=== PATIENT | female | born 1975 | race African-American/Black ===

== ENCOUNTER → 2017-01-09 | Outpatient (CLI) | payer OTHER ==
[2017-01-09 13:14] LABS: URINE APPEARANCE CLEAR (CLEAR); URINE BILIRUBIN NEG (NEG); URINE COLOR YELLOW; URINE NITRITE NEG (NEG); URINE PH 7.5 (4.5-7.5); URINE SPECIFIC GRAVITY 1.012 (1.000-1.030); UROBILINOGEN NEG (NEG)
[2017-01-09 13:22] LABS: MANUAL MICROSCOPIC REQUIRED? NO; REVIEW REQ? NO
== END | disposition home or self-care (01) ==
LOC: C.LABSPEC 12:35
PROVIDERS: ATTEND Obstetrics & Gynecology
DX: O09.521 Supervision of elderly multigravida, first trimester (principal)

== ENCOUNTER → 2017-01-15 | Outpatient (CLI) | payer OTHER ==
[2017-01-15 17:02] LABS: BASO % 0.3 %; BASO ABS # 0.02 K/uL (0-0.2); COMPLETE YES; EOS % 1.4 %; HEMATOCRIT 39.2 % (37-47); IG% 0.3 %; LYMPH % 26.1 %; LYMPH ABS # 1.99 K/uL (1.2-3.4); MEAN CELL VOLUME 84.3 fL (80-100); MEAN CORPUSCULAR HEMOGLOBIN 29.7 pg (25-34); MEAN CORPUSCULAR HGB CONC 35.2 g/dl (32-36); MEAN PLATELET VOLUME 9.5 fL (7.4-10.4); MONO % 6.4 %; NEUT % 65.5 %; PLATELET COUNT 299 K/uL (130-400); RED BLOOD COUNT 4.65 M/uL (4.2-5.4); WHITE BLOOD COUNT 7.61 K/uL (4.8-10.8)
[2017-01-16 12:02] LABS: MANUAL MICROSCOPIC REQUIRED? NO; REVIEW REQ? NO; URINE APPEARANCE CLEAR (CLEAR); URINE BILIRUBIN NEG (NEG); URINE COLOR YELLOW; URINE NITRITE NEG (NEG); URINE SPECIFIC GRAVITY 1.015 (1.000-1.030); UROBILINOGEN NEG (NEG)
[2017-01-18 00:38] LABS: CHLAMYDIA TRACH RNA*** NOT DETECTED (NOT DETECTED); GC (NEIS GONORRHOEAE)RNA** NOT DETECTED (NOT DETECTED)
== END | disposition home or self-care (01) ==
LOC: C.LAB1850 15:37
PROVIDERS: ATTEND Obstetrics & Gynecology
DX: O09.522 Supervision of elderly multigravida, second trimester (principal)

== ENCOUNTER → 2017-03-04 | Outpatient (CLI) | payer OTHER ==
[2017-03-04 19:18] LABS: GTGD 50 Grams
== END | disposition home or self-care (01) ==
LOC: C.LAB1850 14:55
PROVIDERS: ATTEND Obstetrics & Gynecology
DX: O09.522 Supervision of elderly multigravida, second trimester (principal)

== ENCOUNTER → 2017-05-22 | Outpatient (CLI) | payer OTHER ==
[~2017-05-22] MED LIST: OXYC-57 PO; PRENTAB26 PO
[2017-05-22 10:46] LABS: HEMATOCRIT 37.6 % (37-47); HEMOGLOBIN 12.8 g/dL (12.0-16.0)
== END | disposition home or self-care (01) ==
LOC: C.LAB1850 09:39
PROVIDERS: ATTEND Obstetrics & Gynecology
DX: O09.522 Supervision of elderly multigravida, second trimester (principal); Z3A.00 Weeks of gestation of pregnancy not specified

== ENCOUNTER → 2017-07-17 | Outpatient (CLI) | payer OTHER | END | disposition home or self-care (01) | LOC: C.LABSPEC 13:49 | PROVIDERS: ATTEND Obstetrics & Gynecology | DX: O09.813 Supervision of pregnancy resulting from assisted reproductive technology, third trimester (principal); Z3A.00 Weeks of gestation of pregnancy not specified ==

== ENCOUNTER 2017-08-02 05:35 | Inpatient (IN) | payer OTHER ==
--- NOTE | 2017-08-01 17:59 | HISTORY & PHYSICAL EXAMINATION ---
DATE OF ADMISSION: 08/02/2017 PRINCIPAL DIAGNOSIS: Intrauterine at 39 weeks with prior section. The patient requesting repeat section. PRINCIPAL PROCEDURE: Repeat low transverse section. HISTORY OF PRESENT ILLNESS: The patient is a 42-year-old 5, para 2-0-2-2 -[place] female who presents at 39 weeks for repeat section. Her prior section was done because of a nonreassuring heart rate pattern. She did have a spontaneous vaginal delivery prior to this, but she is requesting repeat section at this time. She did have a tubal ligation done in the past, this is an IVF . She had been following the IVF protocol for growth scans and nonstress test and all have been reassuring and within normal limits. echo also was within normal limits. PAST MEDICAL HISTORY: Noncontributory. PAST SURGICAL HISTORY: Tubal ligation in the past and the section. She has also had umbilical hernia repair. OBSTETRICAL AND GYNECOLOGICAL HISTORY: No history of PID, VD or herpes. Periods have been every 28 days. This is an IVF as she has had a prior tubal ligation done in the past. Pap smears have been within normal limits. She has had 2 miscarriages. She has had in 1997 a vaginal delivery at 39 weeks, 7 pound 7 ounce female without complications, 2004 section for nonreassuring heart rate for delivery of a 7 pound male , no complications following her surgeries. ALLERGIES: She has no known drug allergies. MEDICATIONS: vitamin. FAMILY HISTORY: Noncontributory. SOCIAL HISTORY: She does not smoke or drink. HISTORY: Blood type is O positive, antibody screen is negative. Rubella is immune. RPR nonreactive. Hepatitis is negative. HIV is negative. Chlamydia and GC are negative. Glucolas have been within normal limits. Anatomy scan is also normal. Hemoglobin at 28 weeks was 12.8, hematocrit of 37.6. Glucola was within normal limits. She is positive for group B strep. As noted above, growth scans have been within normal limits as have the amniotic fluid index, nonstress tests also have been reactive. PHYSICAL EXAMINATION: VITAL SIGNS: Blood pressure is 116/78. Vital signs are stable. GENERAL: She is a well-nourished, well-developed black female in no apparent distress. LUNGS: Clear to auscultation. HEART: Regular rate and rhythm. No murmurs or gallops. ABDOMEN: Soft and nontender. There is no hepatosplenomegaly or other masses palpable. Fundal height is 39 cm. She has a well-healed low transverse skin incision. PELVIC: Deferred today. EXTREMITIES: Without cyanosis or calf tenderness. ASSESSMENT: A 42-year-old 5, para 2-0-2-2 at 39 weeks presents for repeat section with prior tubal ligation. Please see the orders for further directions.
[2017-08-02] VITALS (20 sets, daily range): BP systolic 107–115; BP diastolic 69–72; PULSE 58–74; TEMP 34.5–36.8; O2SAT 93–98; Ht 154.9 cm; Wt 80.5 kg
[~2017-08-02] VITALS: Ht 154.9 cm; Wt 80.5 kg
[~2017-08-02 05:35] MED LIST changes: +CITRIC ACID/SODIUM CITRATE 15 ML UDC PO ONE; +LACTATED RINGER'S 1000ML 1,000 ML IV SCH; -OXYC-57 PO; -PRENTAB26 PO
[2017-08-02] MEDS ORDERED: PRENTAB26 PO (05:42)
[2017-08-02 05:55] LABS: BASO % 0.3 %; BASO ABS # 0.02 K/uL (0-0.2); EOS % 0.8 %; EOS ABS # 0.06 K/uL (0-0.5); HEMATOCRIT 38.1 % (37-47); HEMOGLOBIN 13.5 g/dL (12.0-16.0); IG# 0.07 K/uL (0.00-0.02); LYMPH % 22.1 %; LYMPH ABS # 1.65 K/uL (1.2-3.4); MEAN CELL VOLUME 86.8 fL (80-100); MEAN CORPUSCULAR HEMOGLOBIN 30.8 pg (25-34); MEAN PLATELET VOLUME 9.5 fL (7.4-10.4); MONO % 10.4 %; MONO ABS # 0.78 K/uL (0.11-0.59); NEUT % 65.5 %; NEUT ABS # 4.89 K/uL (1.4-6.5); PLATELET COUNT 241 K/uL (130-400); RED CELL DISTRIBUTION WIDTH CV 13.6 % (11.5-14.5); RED CELL DISTRIBUTION WIDTH SD 43.1 fL (36.4-46.3); WHITE BLOOD COUNT 7.47 K/uL (4.8-10.8)
[2017-08-02] MEDS ORDERED: CEFAZOLIN IV 2,000 MG in SYRINGE 0 ML IV SCH (06:00)
[2017-08-02] MEDS ORDERED: CEFAZOLIN IV 2,000 MG in DEXTROSE 5% 50ML 50 ML IV SCH (06:00)
[2017-08-02 06:21] LABS: MEAN CORPUSCULAR HGB CONC 35.4 g/dl (32-36)
[2017-08-02] MEDS ORDERED: OXYTOCIN INJ 10 UNITS/ML VIAL ONE (07:19)
--- NOTE | 2017-08-02 07:19 | History & Physical Bridge Note ---
H&P Re-Evaluation Bridge Note: I have examined the patient, reviewed the History & Physical and in the interval since the performance of the History & Physical I have noted the following changes of clinical significance: No changes noted
[2017-08-02] MEDS ORDERED: FENTANYL CITRATE INJ 50 MCG/1 ML 2 ML VIAL ONE (07:20)
[2017-08-02] MEDS ORDERED: MoRPHine SULFATE PF 1 MG/ML 10 ML AMP/VIAL ONE (07:21)
[2017-08-02] MEDS ORDERED: PHENYLEPHRINE 100MCG/ML 5ML SYR ONE (08:00)
[2017-08-02] MEDS ORDERED: [UNRECOGNIZED DRUG - OTHER] IV SCH (08:47)
[2017-08-02] MEDS ORDERED: OXYTOCIN IV SCH (08:47)
--- NOTE | 2017-08-02 08:56 | [facility] Post Operative Brief Note ---
Immediate Operative Summary Operative Date Aug 02, 2017. Pre-Operative Diagnosis Intrauterine at 39 weeks previous Section. Pt requested Repeat Section. Post-Operative Diagnosis Same Procedure(s) Performed Repeart Section with of live female child at 0808. Surgeon Dr. Adan Wood Heel Finisher Surgeon(s) Blanka Jacome Estimated Blood Loss 600ml Findings See Below multiple seedling fibroids, 2 cm uterine fibroid on right round ligament, Fluids (cc crystalloids) 1000 Specimens Placenta Hold Cord Blood Drains [place] to straight drainage- clear urine at the end of the case Anesthesia Type Spinal Complication(s) none Disposition Accompanied Pt To Recover: yes Disposition: L&D
[2017-08-02] MEDS ORDERED: LANOLIN OINT EXT PRN (09:00)
[2017-08-02] MEDS ORDERED: DC PCA PRN (09:00)
[2017-08-02] MEDS ORDERED: MAGNESIUM HYDROXIDE SUSP 30 ML UDC PO PRN (09:00)
[2017-08-02] MEDS ORDERED: SENNA 8.6 MG TAB PO PRN (09:00)
[2017-08-02] MEDS ORDERED: DIPHTHERIA/TETANUS/PERTUSSIS 0.5 ML SYR/VIAL IM. ONE (09:00)
[2017-08-02] MEDS ORDERED: SODIUM CHLORIDE 0.9% 1000ML 1,000 ML IV PRN (09:02)
[2017-08-02] MEDS ORDERED: NALOXONE HCL INJ 1 MG in SODIUM CHLORIDE 0.9% 1000ML 1,000 ML IV PRN ×4 (09:02)
[2017-08-02] MEDS ORDERED: LACTATED RINGER'S 1000ML 500 ML IV PRN (09:02)
[2017-08-02] MEDS ORDERED: NALOXONE HCL INJ 0.08 MG in SYRINGE 1.8 ML IV PRN (09:02)
[2017-08-02] MEDS ORDERED: PROMETHAZINE HCL INJ 25 MG in SODIUM CHLORIDE 0.9% 50ML 50 ML IV PRN (09:15)
[2017-08-02] MEDS ORDERED: NO NARCOTICS OR SEDATIVES SCH (09:15)
[2017-08-02] MEDS ORDERED: NALBUPHINE HCL INJ 10 MG/ML AMP IV PRN (09:15)
[2017-08-02] MEDS ORDERED: EpHEDrine SULFATE INJ 50 MG/ML AMP IV PRN (09:15)
[2017-08-02] MEDS ORDERED: KETOROLAC TROMETHAMINE 30 MG/ML VIAL IV. PRN (09:15)
[2017-08-02] MEDS ORDERED: NALOXONE HCL 0.4 MG/1 ML VIAL/CARP IV PRN (09:15)
[2017-08-02] MEDS ORDERED: MoRPHine SULFATE PF 1 MG/ML 10 ML AMP/VIAL EPI PRN (09:15)
[2017-08-02] MEDS ORDERED: DiphenhydrAMINE HCL 50 MG/ML VIAL IV PRN (09:15)
[2017-08-02] MEDS ORDERED: DC INTRASPINAL MORPHINE SCH (09:15)
[2017-08-02] MEDS ORDERED: LACTATED RINGER'S 1000ML 1,000 ML IV SCH ×2 (09:30→16:45)
[2017-08-02] MEDS: OXYTOCIN INJ 20 UNITS in LACTATED RINGER'S 1000ML 1,000 ML IV SCH ×2 (09:33→18:30)
--- NOTE | 2017-08-02 09:43 | Anesthesiology Progress Note ---
Anesthesia Post Op Note Date & Time Aug 02, 2017 at 09:42 Notes Mental Status: alert / awake / arousable, participated in evaluation Pt Amnestic to Procedure: No Nausea / Vomiting: adequately controlled Pain: adequately controlled Airway Patency, RR, SpO2: stable & adequate BP & HR: stable & adequate Hydration State: stable & adequate Neuraxial Anesthesia: was administered, sensory block is resolving Anesthetic Complications: no major complications apparent
--- NOTE | 2017-08-02 10:00 | OPERATIVE REPORT ---
DATE OF OPERATION: 08/02/2017 SURGEON: Yamile Adan MD. TECHNICAL SUPPORT AGENT: Gladys Ramos, PGY-1. PREOPERATIVE DIAGNOSES: Intrauterine at 39 weeks with prior section, requesting repeat section. POSTOPERATIVE DIAGNOSIS: Same plus delivery of a viable female infant, 8 pounds 4 ounces. PROCEDURE: Repeat low transverse cervical section. ANESTHESIA: Subarachnoid block. BLOOD LOSS: 600 mL. HISTORY OF PRESENT ILLNESS: The patient is a 42-year-old 5, para 2-0-2-2 -[place]i female who presents for repeat section at 39 weeks. Her prior section was done because of a nonreassuring heart rate pattern. The patient is requesting repeat section at this time. She understands the risks of the procedure and are willing to proceed. GROSS FINDINGS: Uterus is gravid and consistent with a term in size. Bilateral ovaries are grossly normal. There is evidence of a bilateral tubal ligation present. She has a 2 cm pedunculated fibroid attached to her right round ligament close to the uterine fundus, but on the round ligament. There are multiple seedling fibroids also present on the posterior wall of the uterus and the uterus does feel somewhat bulky after the baby was delivered. DESCRIPTION OF THE PROCEDURE: After the patient received adequate subarachnoid block, she was prepped and draped in usual sterile fashion. A low transverse skin incision was made through her prior scar and carried to the fascia with the same scalpel. The fascial incision was then extended with Mittal scissors. The edges were then grasped with Linnette clamps and the underlying rectus muscles bluntly and sharply dissected off of the overlying fascia. The rectus muscles were divided with the scalpel to the level of the perineum. They were then additionally with Metzenbaum scissors. After the bladder was taken down off the anterior surface of the uterus, it was placed behind the bladder blade. Low uterine segment was entered with the scalpel and extended transversely. Membranes were ruptured for thin meconium stained fluid with moderate fundal pressure and vacuum assistance. The head was delivered through the uterine incision gently. The mouth and nasopharynx were suctioned on delivery and the rest of the delivered easily and was handed off to Dr. Ruelas who was attendance nursing service administrator after clamping and cutting the umbilical cord. There was vigorous crying and the infant was moving all 4 limbs. The placenta was manually removed and the uterus exteriorized with some difficulty because of the bulkiness of the uterus. The skin incision was extended bilaterally to assist in delivering the uterine fundus and exteriorizing it. It was covered then with a clean lap sponge. The uterine cavity was explored and some retained membranes were removed. The uterus was then closed in a running locking imbricating fashion with 0 Monocryl in 2 layers. Hemostasis appeared to be satisfactory. There was one area that was reinforced with a [id number] stitch on the right side of the uterine incision. The posterior cul-de-sac was then irrigated with normal saline. The uterine incision was examined once more and continued to have excellent hemostasis. The gutters were explored and there appeared to be no clot or fluid present. The anterior cul-de-sac was then irrigated with normal saline. This was all done after the uterus was placed back inside the uterine cavity. The rectus muscles were brought together on the midline with a running stitch of 0 Monocryl. The fascia was closed in a running fashion with 0 Vicryl after ensuring hemostasis in the adipose layer and freeing up the skin edge because of scar tissue. The skin edges were reapproximated using a subcuticular stitch of 4-0 Vicryl. Urine was clear at the end of the case. Mother and infant were doing well after delivery. I attest to the content of the Intraoperative Record and any orders documented therein. Any exceptions are noted below. DOLLYD
[2017-08-02] MEDS: ONDANSETRON INJ 2 MG/ML 2 ML VIAL IV PRN ×2 (10:27→16:59)
[2017-08-02] MEDS: SIMETHICONE 80 MG CHEW PO SCH ×3 (12:00→23:15)
[2017-08-02] MEDS ORDERED: ACETAMINOPHEN IV 100 ML IV PRN (12:30)
[2017-08-02] MEDS ORDERED: LORAZEPAM INJ 0.5 MG in SYRINGE 0.75 ML IV STA (17:17)
[2017-08-02] MEDS: DOCUSATE SODIUM 100 MG CAP PO SCH (20:00)
[2017-08-03] VITALS: BP 105/69; PULSE 83; TEMP 36.7; O2SAT 97
[2017-08-03 01:00] VITALS: O2SAT 96
[2017-08-03] MEDS ORDERED: OXYCODONE/ACETAMINOPHEN 5-325 TAB PO PRN (03:00)
[2017-08-03] MEDS ORDERED: MEPERIDINE HCL 50 MG/ML CARP IV PRN ×2 (03:00)
[2017-08-03] MEDS ORDERED: PROMETHAZINE HCL INJ 25 MG in SODIUM CHLORIDE 0.9% 50ML 50 ML IV PRN (03:00)
[2017-08-03] MEDS ORDERED: ONDANSETRON INJ 2 MG/ML 2 ML VIAL IV PRN (03:00)
[2017-08-03] MEDS ORDERED: KETOROLAC TROMETHAMINE 30 MG/ML VIAL IV. PRN (03:00)
[2017-08-03] MEDS ORDERED: DiphenhydrAMINE HCL 50 MG/ML VIAL IV PRN (03:00)
[2017-08-03 03:30] VITALS: BP 104/62; PULSE 87; TEMP 37.3; O2SAT 97
--- NOTE | 2017-08-03 07:43 | Progress Note ---
Subjective Aug 03, 2017. Subjective conversation w/ patient, physical exam Ambulation: limited ambulation Voiding: no voiding problems (bearden removed this AM; no urination on her own yet) Passing Gas: Yes Diet Tolerance: Clear Liquids (to be advanced this morning to regular) Lochia: Small Feeding Type: Breast Feeding Pain: pain at 3/10, improved with Rx Comment: pt seen and assessed at bedside this AM; no acute events overnight Review of Systems Constitutional: No fever, No chills Respiratory: No cough, No shortness of breath Cardiac: No chest pain, No edema Breast: No problem reported Abdomen: No pain, No nausea, No vomiting Female : No problem reported no headaches or calf tenderness reported Objective Vital Signs Date Time Temp Pulse Resp B/P (MAP) Pulse Ox O2 Delivery O2 Flow Rate FiO2 08/03/17 03:30 37.3 87 16 104/62 (76) 97 Room Air 08/03/17 01:00 16 96 08/03/17 00:00 97 Room Air 08/03/17 00:00 16 97 08/03/17 00:00 36.7 83 16 105/69 (81) 97 Room Air 08/02/17 23:00 16 97 08/02/17 22:00 20 97 08/02/17 21:00 20 97 08/02/17 20:00 20 98 08/02/17 19:30 96 Room Air 08/02/17 19:30 36.5 74 20 107/69 (82) Room Air 08/02/17 19:30 20 96 08/02/17 19:00 20 96 08/02/17 19:00 16 97 08/02/17 18:55 36.8 08/02/17 18:25 35.4 08/02/17 18:00 16 98 08/02/17 17:55 35.4 08/02/17 17:15 35.5 08/02/17 17:00 18 97 08/02/17 16:45 97 Room Air 08/02/17 16:45 34.5 74 18 115/70 (85) Room Air 08/02/17 16:45 34.5 08/02/17 16:00 18 95 08/02/17 15:00 16 93 08/02/17 14:00 18 97 08/02/17 13:10 34.9 58 16 110/72 (85) 95 Room Air 08/02/17 13:10 16 95 08/02/17 11:50 98 Room Air 08/02/17 11:50 34.8 61 18 108/71 (83) 98 Room Air 08/02/17 11:50 18 98 Physical Exam General Appearance: WELL-APPEARING, WD/WN Respiratory/Chest: chest non-tender, lungs clear Cardiovascular: regular rate, rhythm, no edema Abdomen: normal bowel sounds, non tender, soft Fundus: Firm, Non-Tender, Relation to Umbilicus (1 cm below) Incision Description: Clean, Dry & Intact Extremities: normal range of motion, non-tender, normal inspection, no pedal edema, no calf tenderness Laboratory Results Last 24 Hours Test 08/03/17 06:00 Medications Current Inpatient Medications Medications (Trade) Dose Ordered Sig/Dorothy Route Start Time Stop Time Status Last Admin Dose Admin Lactated Ringer's 1,000 ml @ 1,000 mls/hr Q1H IV 08/02/17 04:58 09/01/17 04:57 08/02/17 06:12 1,000 MLS/HR Oxytocin 20 units/ Lactated Ringer's 1,002 ml @ 125 mls/hr Q8H1M IV 08/02/17 09:30 09/01/17 09:29 08/02/17 18:30 125 MLS/HR Lactated Ringer's 1,000 ml @ 125 mls/hr Q8H IV 08/02/17 09:30 09/01/17 09:29 Ketorolac Tromethamine (Toradol Inj) 30 mg Q6H PRN IV. 08/03/17 03:00 08/08/17 02:59 08/03/17 06:09 30 MG Meperidine HCl (Demerol Inj) 50 mg Q4H PRN IV 08/03/17 03:00 08/17/17 02:59 Meperidine HCl (Demerol Inj) 75 mg Q4H PRN IV 08/03/17 03:00 08/17/17 02:59 Oxycodone/ Acetaminophen (Percocet 5-325mg Tab) 0.5 tab Q4H PRN PO 08/03/17 03:00 08/17/17 02:59 Oxycodone/ Acetaminophen (Percocet 5-325mg Tab) 1 tab Q4H PRN PO 08/03/17 03:00 08/17/17 02:59 Ibuprofen (Motrin Tab) 600 mg Q4H PRN PO 08/02/17 09:00 09/01/17 08:59 Promethazine HCl 25 mg/Sodium Chloride 51 ml @ 204 mls/hr Q4H PRN IV 08/03/17 03:00 09/02/17 02:59 Ondansetron HCl (Zofran Inj) 4 mg Q4H PRN IV 08/03/17 03:00 09/02/17 02:59 Prenat Multivit/ [place]/Iron/Folic Ac ( Vitamin Tab) 1 tab DAILY PO 08/03/17 08:00 09/02/17 07:59 Bisacodyl (Dulcolax Tab) 5 mg HS ONCE PO 08/03/17 22:00 08/03/17 22:01 Bisacodyl (Dulcolax Supp) 10 mg PRN PRN MA 08/04/17 09:00 09/03/17 08:59 Docusate Sodium (coLACE CAP) 100 mg BID PO 08/02/17 20:00 09/01/17 19:59 Magnesium Hydroxide (Milk Of Magnesia Susp) 30 ml HS PRN PO 08/02/17 09:00 09/01/17 08:59 Ferrous Sulfate (Feosol Tab) 325 mg DAILY PO 08/03/17 08:00 09/02/17 07:59 Lanolin (Lanolin Oint) PRN PRN EXT 08/02/17 09:00 09/01/17 08:59 Simethicone (Mylicon Chew Tab) 80 mg QID PO 08/02/17 12:00 09/01/17 12:59 Diphenhydramine HCl (Benadryl Cap) 25 mg QID PRN PO 08/03/17 03:00 09/02/17 02:59 Diphenhydramine HCl (Benadryl Inj) 25 mg QID PRN IV 08/03/17 03:00 09/02/17 02:59 Senna (Senokot Tab) 17.2 mg HS PRN PO 08/02/17 09:00 09/01/17 08:59 Acetaminophen 100 ml @ 400 mls/hr Q8H PRN IV 08/02/17 12:30 09/01/17 12:29 Assessment and Plan Post-Op Day#: 1 Continue Routine Care: Resident Physician Supervision Note: I was present with Dr. Ramos during the history and exam. I discussed the case with the resident and agree with the findings and plan as documented in the note. Any exceptions or clarifications are listed here: [None] Documented By: Yamile Golden 42 yo , POD #1 s/p elective CS Continue routine care Encourage ambulation, breast feeding Pain control with Rx prn Discussed wound care Discharge 1-2 days Resident Tracking Resident Involvement: Resident Care Provided Care Provided: OB Delivery
[2017-08-03] MEDS: DOCUSATE SODIUM 100 MG CAP PO SCH ×2 (07:47→20:11)
[2017-08-03] MEDS: FERROUS SULFATE 325 MG TAB PO SCH (07:47)
[2017-08-03] MEDS: SIMETHICONE 80 MG CHEW PO SCH ×4 (07:47→20:11)
[2017-08-03] MEDS: PRENATAL VITAMIN TAB PO SCH (07:47)
[2017-08-03 08:00] VITALS: BP 108/69; PULSE 76; TEMP 36.9
[2017-08-03] MEDS ORDERED: PRENATAL VITAMIN TAB PO SCH (08:00)
--- NOTE | 2017-08-03 08:05 | Discharge Instructions ---
Discharge Instructions Date of Service Aug 03, 2017. Admission Reason for Admission: History of Delivery Discharge Discharge Diagnosis / Problem: s/p elective CS Discharge Goals Goal(s): Routine recovery after Medications Continue Dispensed Medications: lansinoh Activity Recommendations Activity Limitations: per Instructions/Follow-up section . Instructions / Follow-Up Instructions / Follow-Up ACTIVITY RECOMMENDATIONS: * Gradual return to full activity over the next 2-3 weeks. * No lifting - nothing heavier than baby over the next 2-3 weeks. * Do not engage in vigorous exercise, sexual activity or sports until cleared by your physician. * Do not drive or operate any motorized equipment until cleared by your physician. * You may shower/bathe daily. MEDICATIONS: For discomfort or pain, you may use Acetaminophen (Tylenol), Ibuprofen (Advil), or Naproxen (Aleve) following the package directions. For constipation you may use Colace following the package directions. BREAST CARE: If you are not breast feeding: * Wear a supportive bra 24 hours a day for one to two weeks. * Avoid stimulating your breasts and nipples as much as possible during the first few weeks after delivery. * When taking a shower, have the warm water hit your back, not breasts. * When your breasts feel full, apply ice packs. Usually three to four times a day helps ease the discomfort. * Take a mild pain medication (Tylenol / Motrin) when you are uncomfortable. If breast feeding: * Use breast milk to lubricate nipples. Lansinoh cream may be used for sore nipples. You do not need to remove cream prior to breast feeding. If using a different brand of cream, check the label for directions regarding removal of cream prior to nursing. * Wear a supportive bra. * If having problems with breasts or breast feeding, call a portfolio consultant or your health care provider. SPECIAL CARE INSTRUCTIONS: When you are discharged from the hospital, it is important for you to follow the instructions listed below: * During the first week at home, you should be able to care for yourself and your baby. In addition, the usual light household activities are encouraged. * Limit your activities to the way you feel. Do not try to clean the house or move furniture. Be sensible. * If you actively engage in sports and have done so up until the time of your delivery, you may resume these activities as soon as you feel able. This may take up to one month or even longer. Use good judgment. * Continue to take your vitamins for at least six weeks after the of your baby. * Your diet need not be limited unless you were on a special diet before your delivery. Breast-feeding mothers need around 2500 calories per day and at least 64-80 ounces of fluid per day (8 to 10 glasses). * You should eat foods from the four major food groups. Crash diets or fad diets are to be avoided. Eating lean meats, fresh fruits and vegetables, low-fat dairy products, high fiber foods and a regular exercise program, will help you get back to your pre- weight without putting your health at risk. * Constipation is sometimes a problem after delivery. Take a mild laxative as needed. If breast feeding, Milk of Magnesia is acceptable to use. You may use a suppository or Fleets enema. * A daily shower or tub bath is suggested. Wash incision daily with warm soapy water and pat dry. It doesn't need to be covered unless drainage is present. * A bloody vaginal discharge will usually continue until around four weeks . A small amount of bleeding may continue for as long as six weeks. Vaginal discharge changes from the bright red bleeding after delivery to pink then brownish and finally yellowish-pink before becoming white and disappearing. * Bleeding may increase with activity. Your first period may come in 4-8 weeks. If you are breast feeding, your period may be delayed even longer. * [place] (sex) can begin whenever both you and your partner feel comfortable and do not have any form of genital infection. It is recommended that you wait at least six weeks for internal and external healing to occur. If you have questions, please talk to your health care practitioner. A condom should be used to prevent infection and . * Foreplay, gentle intercourse and lubrication is very important the first several times to prevent pain. A water-based lubricant such as K-Y jelly or Astroglide may be used. * If you have RH negative blood and your baby is RH positive, you will receive RHOGAM by injection prior to discharge. The nurse will give you a card to keep with you that has the date and place that you received RHOGAM after delivery. * During your care, you had a Rubella screen done to check for the presence of rubella antibodies in your blood. If your test was negative, you will receive a Rubella vaccine prior to discharge. This vaccine may cause a fever, soreness at the injection site and flu-like symptoms. If these symptoms persist, notify your health care practitioner. is not advised for one month after a Rubella vaccine. * Verbalizes understanding of car seat law as reviewed with patient nursing. * Car Seat hand-out given and reviewed with patient by nursing. * Shaken baby information reviewed with patient by nursing. Call you doctor if: * Heavy bleeding (saturating several pads an hour) or passing clots the size of your fist. * A fever >101 degrees F (38.3 degrees C) on two occasions four hours apart and /or chills. * Unusual pain in the pelvic or vaginal areas. * Call the doctor for any increased redness, drainage or swelling around the incision and any pain unrelieved by prescribed pain medication. * "Baby Blues" lasting longer than two weeks. If you have any questions or concerns, call your health care practitioner at . FOLLOW UP VISIT: * Please call the office at to schedule a 6 week examination. It is important you keep this appointment. It is important for you to make arrangements for either yearly or twice yearly check-ups thereafter. Current Hospital Diet Patient's current hospital diet: Regular OB Diet Discharge Diet Recommended Diet: Regular OB Diet Procedures Procedures Performed: Repeart Section with of live female child at 0808. Pending Studies Studies pending at discharge: no Medical Emergencies . Who to Call and When: Medical Emergencies: If at any time you feel your situation is an emergency, please call [phone] immediately. . Non-Emergent Contact Non-Emergency issues call your: House Parent . . "Provider Documentation" section prepared by Mirna Ramos. .
[2017-08-03 08:28] LABS: BASO % 0.1 %; BASO ABS # 0.01 K/uL (0-0.2); EOS % 0.3 %; EOS ABS # 0.03 K/uL (0-0.5); HEMATOCRIT 29.8 % (37-47); HEMOGLOBIN 10.2 g/dL (12.0-16.0); IG# 0.04 K/uL (0.00-0.02); LYMPH % 12.8 %; LYMPH ABS # 1.32 K/uL (1.2-3.4); MEAN CELL VOLUME 87.6 fL (80-100); MEAN CORPUSCULAR HGB CONC 34.2 g/dl (32-36); MEAN PLATELET VOLUME 9.3 fL (7.4-10.4); MONO % 5.2 %; MONO ABS # 0.53 K/uL (0.11-0.59); NEUT % 81.2 %; NEUT ABS # 8.36 K/uL (1.4-6.5); PLATELET COUNT 199 K/uL (130-400); RED CELL DISTRIBUTION WIDTH CV 13.6 % (11.5-14.5); RED CELL DISTRIBUTION WIDTH SD 43.9 fL (36.4-46.3); WHITE BLOOD COUNT 10.29 K/uL (4.8-10.8)
[2017-08-03] MEDS: IBUPROFEN 600 MG TAB PO PRN ×3 (11:53→20:42)
[2017-08-03 12:00] VITALS: BP 108/78; PULSE 84; TEMP 36.7
[2017-08-03 15:30] VITALS: BP 108/71; PULSE 83; TEMP 36.8
[2017-08-03] MEDS ORDERED: BISACODYL 5 MG TABEC PO ONE (22:00)
[2017-08-03] MEDS: OXYCODONE/ACETAMINOPHEN 5-325 TAB PO PRN (23:25)
[2017-08-04 00:35] VITALS: BP 117/76; PULSE 78; TEMP 37
[2017-08-04] MEDS: OXYCODONE/ACETAMINOPHEN 5-325 TAB PO PRN ×2 (06:26→11:31)
[2017-08-04 07:48] LABS: HEMOGLOBIN 10.7 g/dL (12.0-16.0)
[2017-08-04] MEDS: DOCUSATE SODIUM 100 MG CAP PO SCH (08:13)
[2017-08-04] MEDS: PRENATAL VITAMIN TAB PO SCH (08:13)
[2017-08-04] MEDS: FERROUS SULFATE 325 MG TAB PO SCH (08:13)
[2017-08-04] MEDS: SIMETHICONE 80 MG CHEW PO SCH (08:14)
[2017-08-04 08:36] VITALS: BP 102/69; PULSE 76; TEMP 36.6
[2017-08-04] MEDS ORDERED: BISACODYL 10 MG SUPP PR PRN (09:00)
[2017-08-04] MEDS ORDERED: OXYC-57 PO (09:51)
--- NOTE | 2017-08-04 09:51 | Progress Note ---
Subjective Aug 04, 2017. Subjective conversation w/ patient, physical exam, lab review Ambulation: ambulating normally Voiding: no voiding problems (bearden removed this AM; no urination on her own yet) Passing Gas: Yes Diet Tolerance: Regular Diet Lochia: Small Feeding Type: Breast Feeding Pain: controlled with oral pain meds Objective Vital Signs Date Time Temp Pulse Resp B/P (MAP) Pulse Ox O2 Delivery O2 Flow Rate FiO2 08/04/17 08:36 36.6 76 20 102/69 (80) Room Air 08/04/17 07:45 Room Air 08/04/17 00:35 Room Air 08/04/17 00:35 37.0 78 16 117/76 (90) Room Air 08/03/17 15:30 36.8 83 20 108/71 (83) Room Air 08/03/17 15:30 Room Air 08/03/17 12:00 36.7 84 20 108/78 (88) Physical Exam General Appearance: WELL-APPEARING, WD/WN, NO APPARENT DISTRESS Abdomen: non tender, soft Fundus: Firm, Tender (appropriate for postop), Relation to Umbilicus (2 above u , lots of skin edema) Incision Description: Clean, Dry & Intact Extremities: non-tender, normal inspection, + pedal edema (trace) Laboratory Results Last 24 Hours Test 08/04/17 07:25 Hemoglobin 10.7 g/dL Hematocrit 31.0 % Assessment and Plan Post-Op Day#: 2 Continue Routine Care: Doing well. Plan d/c. Instructions given. Scripts given.
[2017-08-04] MEDS: IBUPROFEN 600 MG TAB PO PRN (11:42)
[2017-08-04 11:55] VITALS: BP_DIAS 69; PULSE 76; TEMP 36.6
== END 2017-08-04 11:55 | disposition home or self-care (01) | DRG 766 ==
LOC: C.LD 05:35 → C.OBG 11:34 → EDSTATUS 14:49
PROVIDERS: ADMIT Obstetrics & Gynecology; ATTEND Obstetrics & Gynecology
PROC: 10D00Z1 Extraction of Products of Conception, Low, Open Approach (ICD-10-PCS; principal; 2017-08-02 07:30)
DX: O34.219 Maternal care for unspecified type scar from previous cesarean delivery (principal); O09.523 Supervision of elderly multigravida, third trimester; Z37.0 Single live birth; Z3A.39 39 weeks gestation of pregnancy

== ENCOUNTER → 2017-09-20 | Outpatient (CLI) | payer OTHER ==
[~2017-09-20] MED LIST changes: -CITRIC ACID/SODIUM CITRATE 15 ML UDC PO ONE; -LACTATED RINGER'S 1000ML 1,000 ML IV SCH; +OXYC-57 PO; +PRENTAB26 PO
== END | disposition home or self-care (01) ==
LOC: C.PAPS 14:28
PROVIDERS: ATTEND Obstetrics & Gynecology
DX: Z12.4 Encounter for screening for malignant neoplasm of cervix (principal)